=== PATIENT | female | born 1945 | race American Indian/Alaskan Native ===

== ENCOUNTER 2020-04-25 13:44 | Emergency (ER) | payer MEDICARE ==
[2020-04-25 13:51] VITALS: BP 157/132
--- NOTE | 2020-04-25 14:19 | Event Note ---
ED Screening Note Date of service: 04/25/20 Time: 14:18 ED Screening Note: 74-year-old -[place] female with a past medical history of diabetes presented to the emergency room via EMS for left hip pain and left leg pain. Patient states she has muscle cramps from her buttock down to her ankle. Patient reports she is not able to get comfortable. Patient reports that she has been using lidocaine cream and tizanidine 4 mg 3 times a day and is often had to double up. Patient states she is not able to get any relief. Patient states is been going on for about 2 weeks but 1 week she had a fall. Denies any head injury or loss of consciousness. This initial assessment/diagnostic orders/clinical plan/treatment(s) is/are subject to change based on patients health status, clinical progression and re- assessment by fellow clinical providers in the ED. Further treatment and workup at subsequent clinical providers discretion. Patient/guardian urged not to elope from the ED as their condition may be serious if not clinically assessed and managed. Initial orders include:
[2020-04-25 14:35] LABS: Basophils % (Auto) 0.3 % (0.0-1.8); Eosinophils # (Auto) 0.1 K/mm3 (0.0-0.4); Eosinophils % (Auto) 1.7 % (0.0-4.3); Hematocrit 44.9 % (30.3-42.9); Hemoglobin 14.8 gm/dl (10.1-14.3); Lymphocytes # (Auto) 3.4 K/mm3 (1.2-5.4); Mean Corpuscular HGB Conc 33 % (30-34); Mean Corpuscular Volume 86 fl (79-97); Monocytes # (Auto) 0.4 K/mm3 (0.0-0.8); Platelet Count 183 K/mm3 (140-440)
--- NOTE | 2020-04-25 15:26 | XRay Report ---
LEFT HIP 2 VIEW(S) INDICATION / CLINICAL INFORMATION: Left hip pain COMPARISON: None available. FINDINGS: BONES / JOINT(S): No acute fracture or subluxation. 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 SOFT TISSUES: No significant abnormality. ADDITIONAL FINDINGS: None. Signer Name: Slick Pedroza MD Signed: 04/25/2020 3:21 PM Workstation Name: [id number]
[2020-04-25 15:28] LABS: Alanine Aminotransferase 21 units/L (7-56); Albumin 4.1 g/dL (3.9-5); Blood Urea Nitrogen 15 mg/dL (7-17); Calcium 9.4 mg/dL (8.4-10.2); Hemolysis Index 36
[2020-04-25 15:39] LABS: BUN/Creatinine Ratio 25
[2020-04-25] MEDS ORDERED: ACETAMINOPHEN 325 MG TAB PO ONE (17:44)
[2020-04-25] MEDS ORDERED: MORPHINE 4 MG/1 ML INJ IM ONE (17:44)
--- NOTE | 2020-04-25 17:52 | Emergency Department Report ---
ED General Adult HPI - General Chief complaint: Fall Stated complaint: FALL/LEFT LEG Time Seen by Provider: 04/25/20 17:27 Source: patient Mode of arrival: Wheelchair Limitations: No Limitations - History of Present Illness Initial comments: Patient is a 74-year-old female presents emergency room with complaints of left hip pain that began 2 weeks ago. She states that she had a slip and fall 2 weeks ago. She states since then she has had left-sided hip pain. She states that the pain also radiates to her left back and down her left leg. She states it feels like a muscle cramping. She states occasionally she feels a cramping in her right leg as well. She denies any leg swelling, calf pain, chest pain, shortness of breath, acute numbness or weakness. She states that she went to her primary care doctor and was prescribed tizanidine. She has not followed back up with a primary care doctor or an orthopedic doctor. She states that she is also currently on pregabalin and tramadol. She has past medical history of diabetes, neuropathy, fibromyalgia. No medication allergies. - Related Data Allergies Allergy/AdvReac Type Severity Reaction Status Date / Time No Known Allergies Allergy Unverified 08/04/14 12:59 ED Review of Systems ROS: Stated complaint: FALL/LEFT LEG Other details as noted in HPI Comment: All other systems reviewed and negative ED Past Medical Hx - Past Medical History Previous Medical History?: Yes Hx Diabetes: Yes Additional medical history: Neuropathy, fibromyalgia ED Physical Exam - General Limitations: No Limitations General appearance: alert, in no apparent distress - Head Head exam: Present: atraumatic, normocephalic - Eye Eye exam: Present: normal appearance - ENT ENT exam: Present: mucous membranes moist - Respiratory Respiratory exam: Absent: respiratory distress, accessory muscle use - Extremities Exam Extremities exam: Present: other (no bony ttp of the LLE or RLE, no edema of the RLE/LLE, no skin changes, no deformities, no calf ttp, neurovascularly intact) - Back Exam Back exam: Present: normal inspection, full ROM, paraspinal tenderness (mild left sided lumbar paraspinal muscular ttp, no midline C-spine, T-spine or L- spine ttp, no step offs, no deformities). Absent: vertebral tenderness - Neurological Exam Neurological exam: Present: alert, oriented X3, CN II-XII intact, normal gait. Absent: motor sensory deficit - Psychiatric Psychiatric exam: Present: normal affect, normal mood - Skin Skin exam: Present: warm, dry, intact ED Course Vital Signs 04/25/20 13:50 Temperature 98.2 F Pulse Rate 69 Respiratory 18 Rate Blood Pressure 157/132 [Right] O2 Sat by Pulse 97 Oximetry ED Medical Decision Making - Lab Data Result diagrams: 04/25/20 14:29 04/25/20 14:29 Lab Results 04/25/20 04/25/20 Range/Units 14:29 14:29 WBC 6.3 (4.5-11.0) K/mm3 RBC 5.20 H (3.65-5.03) M/mm3 Hgb 14.8 H (10.1-14.3) gm/dl Hct 44.9 H (30.3-42.9) % MCV 86 (79-97) fl MCH 28 (28-32) pg MCHC 33 (30-34) % RDW 16.0 H (13.2-15.2) % Plt Count 183 (140-440) K/mm3 Lymph % (Auto) 54.0 H (13.4-35.0) % Taylor % (Auto) 6.0 (0.0-7.3) % Eos % (Auto) 1.7 (0.0-4.3) % Baso % (Auto) 0.3 (0.0-1.8) % Lymph # (Auto) 3.4 (1.2-5.4) K/mm3 Taylor # (Auto) 0.4 (0.0-0.8) K/mm3 Eos # (Auto) 0.1 (0.0-0.4) K/mm3 Baso # (Auto) 0.0 (0.0-0.1) K/mm3 Seg Neutrophils % 38.0 L (40.0-70.0) % Seg Neutrophils # 2.4 (1.8-7.7) K/mm3 Sodium 141 (137-145) mmol/L Potassium 3.9 (3.6-5.0) mmol/L Chloride 107.3 H (98-107) mmol/L Carbon Dioxide 23 (22-30) mmol/L Anion Gap 15 mmol/L BUN 15 (7-17) mg/dL Creatinine 0.6 (0.6-1.2) mg/dL Estimated GFR > 60 ml/min BUN/Creatinine Ratio 25 % Glucose 81 (65-100) mg/dL Calcium 9.4 (8.4-10.2) mg/dL Total Bilirubin 0.70 (0.1-1.2) mg/dL AST 22 (5-40) units/L ALT 21 (7-56) units/L Alkaline Phosphatase 121 (35-129) units/L Total Protein 6.8 (6.3-8.2) g/dL Albumin 4.1 (3.9-5) g/dL Albumin/Globulin Ratio 1.5 % - Radiology Data Radiology results: report reviewed Ordering Physician: PAULINA SHETTY Date of Service: 04/25/20 Procedure(s): XR hip 2-3V LT Accession Number(s): [id number] cc: PAULINA SHETTY Fluoro Time In Minutes: LEFT HIP 2 VIEW(S) INDICATION / CLINICAL INFORMATION: Left hip pain COMPARISON: None available. FINDINGS: BONES / JOINT(S): No acute fracture or subluxation. 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 SOFT TISSUES: No significant abnormality. ADDITIONAL FINDINGS: None. Signer Name: Aden Pedroza MD Signed: 04/25/2020 3:21 PM Workstation Name: [id number] Transcribed By: SS Dictated By: ADEN PEDROZA Electronically Authenticated By: ADEN PEDROZA Signed Date/Time: 04/25/20 1521 DD/ 1520 TD/TT: - Medical Decision Making Patient is a 74-year-old female presents emergency room with complaints of left hip pain that began 2 weeks ago. She states that she had a slip and fall 2 wee ks ago. She states since then she has had left-sided hip pain. She states that the pain also radiates to her left back and down her left leg. She states it feels like a muscle cramping. She states occasionally she feels a cramping in her right leg as well. She denies any leg swelling, calf pain, chest pain, shortness of breath, acute numbness or weakness. She states that she went to her primary care doctor and was prescribed tizanidine. She has not followed back up with a primary care doctor or an orthopedic doctor. She states that she is also currently on pregabalin and tramadol. She has past medical history of diabetes, neuropathy, fibromyalgia. No medication allergies. on exam:no bony ttp of the LLE or RLE, no edema of the RLE/LLE, no skin changes, no deformities, no calf ttp, neurovascularly intact, mild left sided lumbar paraspinal muscular ttp, no midline C-spine, T-spine or L-spine ttp, no step offs, no deformities. Symptoms could be related to sciatica versus muscle strain versus arthritis. no clinical s/sx of DVT, no signs of septic joint, no signs of gout. XR left hip: BONES / JOINT(S): No acute fracture or subluxation. 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 SOFT TISSUES: No significant abnormality. ADDITIONAL FINDINGS: None. labs are normal. pt given tylenol and IM morphine with improvement of symptoms. advised pt Please continue taking medication as prescribed by your primary care doctor. May use ice pack, heating pad, rest. Follow-up with a primary care doctor. Follow-up with a orthopedic doctor. Return to emergency room for new or worsening symptoms. Critical care attestation.: If time is entered above; I have spent that time in minutes in the direct care of this critically ill patient, excluding procedure time. ED Disposition Clinical Impression: Left hip pain Disposition: DC-01 TO HOME OR SELFCARE Is pt being admited?: No Does the pt Need Aspirin: No Condition: Stable Instructions: Sciatica, Joint Pain Additional Instructions: Please continue taking medication as prescribed by your primary care doctor. May use ice pack, heating pad, rest. Follow-up with a primary care doctor. Follow-up with a orthopedic doctor. Return to emergency room for new or worsening symptoms. Referrals: GEMINI MEANS MD [Primary Care Provider] - 2-3 Days [facility] [Provider Group] - 2-3 Days GABRIELA ALSTON MD [Staff Physician] - 2-3 Days Time of Disposition: 17:48 Print Language: CHINESE
== END 2020-04-25 19:01 | disposition home or self-care (01) ==
LOC: ED 13:44
DX: M25.552 Pain in left hip (principal); E11.40 Type 2 diabetes mellitus with diabetic neuropathy, unspecified
CPT/HCPCS: 36415; 73502; 80053; 85025; 96372; 99284; J2270